=== PATIENT | female | born 1960 | race Caucasian/White ===

== ENCOUNTER → 2018-07-27 | Outpatient (CLI) | payer OTHER ==
--- NOTE | 2018-07-27 08:46 | MR ---
EXAMINATION TYPE: MR knee LT wo con DATE OF EXAM: 07/27/2018 COMPARISON: None HISTORY: Left knee pain / Effusion / Possible Medial meniscus tear TECHNIQUE: Multiplanar, multisequence imaging of the left knee is performed without IV contrast. FINDINGS: MEDIAL MENISCUS: There is a complex tear involving the posterior horn and body of the medial meniscus . LATERAL MENISCUS: Anterior and posterior horns are intact without tear. CRUCIATE LIGAMENTS: The anterior and posterior cruciate ligaments are intact and unremarkable. COLLATERAL LIGAMENTS: The medial collateral ligament and lateral collateral ligament complex are inta ct. Increased fluid surrounding the MCL compatible with grade 1 sprain. EXTENSOR MECHANISM: Visualized quadriceps and patellar tendons are intact. EFFUSION: There is a small amount of fluid in the suprapatellar bursa. POPLITEAL CYST: There is a large 7.5 x 4 x 3 cm popliteal fossa cyst with adjacent fluid compatible with a leaking popliteal fossa cyst. TRICOMPARTMENT SPACES: There is narrowing the medial compartment and patellofemoral compartment joint space with marked thinning of the cartilage compatible with chondromalacia. Correlate for osteoarthr itis. No erosive changes. BONE MARROW SIGNAL: There is abnormal signal involving the posterior medial femoral condyle which is heterogeneous compatible with an area of bone infarction. Marrow edema involving the medial femur and tibia likely reactive. Tiny simple appearing benign cyst involving the tibial plateau near the inter condylar notch IMPRESSION: 1. Complex tear posterior horn and body medial meniscus. 2. Grade 1 MCL sprain. 3. Large 7.5 cm leaking popliteal fossa cyst. 4. Bone infarct medial femoral posterior condyle. 5. Reactive marrow edema involving the medial tibia and femur. 6. Osteoarthritis with diffuse chondromalacia but no evidence of erosive changes.
== END | disposition home or self-care (01) ==
LOC: RADMRIMAIN 07:12
PROVIDERS: ATTEND Orthopaedic Surgery Sports Medicine
DX: S83.242A Other tear of medial meniscus, current injury, left knee, initial encounter (principal); S83.412A Sprain of medial collateral ligament of left knee, initial encounter; M71.22 Synovial cyst of popliteal space [Baker], left knee; M17.12 Unilateral primary osteoarthritis, left knee; M94.262 Chondromalacia, left knee

== ENCOUNTER 2023-12-10 23:11 | Emergency (ER) | payer MEDICARE, OTHER ==
[2023-12-10] MEDS: ACETAMINOPHEN TAB 325 MG TAB PO STA (23:32)
[2023-12-10] MEDS: SODIUM CHLORIDE 0.9% 1,000 ML IV ONE (23:33)
[2023-12-11 00:05] LABS: Basophils # (A) 0.1 k/uL (0-0.2); Basophils % (A) 1 %; Eosinophils # (A) 0.1 k/uL (0-0.7); Eosinophils % (A) 1 %; HCT 40.3 % (34.0-46.0); HGB 13.4 gm/dL (11.4-16.0); Lymphocytes # (A) 2.9 k/uL (1.0-4.8); Lymphocytes % (A) 36 %; MCH 29.9 pg (25.0-35.0); MCHC 33.2 g/dL (31.0-37.0); MCV 90.2 fL (80.0-100.0); Mean Platelet Volume 8.4; Monocytes # (A) 0.5 k/uL (0-1.0); Monocytes % (A) 7 %; Neutrophils # (A) 4.1 k/uL (1.3-7.7); Neutrophils % (A) 52 %; Platelet Count 255 k/uL (150-450); RBC 4.46 m/uL (3.80-5.40); RDW 13.7 % (11.5-15.5); WBC 7.8 k/uL (3.8-10.6)
[2023-12-11 00:15] LABS: INR 0.9 (<1.2); Partial Thromboplastin Time 23.9 sec (22.0-30.0); Prothrombin Time 10.2 sec (10.0-12.5)
--- NOTE | 2023-12-11 00:22 | ED ---
General Adult HPI - General Chief complaint: Fall Stated complaint: Fall Time Seen by Provider: 12/10/23 23:18 Source: patient, EMS, RN notes reviewed, old records reviewed Mode of arrival: EMS Limitations: no limitations - History of Present Illness Initial comments: Patient is a 63-year-old female who presents to the ED emergency department for unwitnessed fall downstairs prior to arrival. Patient was drinking alcohol this evening. Patient's heard the patient slip and fall. There are 2 sets of stairs, and patient did not fall for long and likely fell down at most 2-3 steps. She was unconscious when family found her. She is not on blood thinners. Woke up and while intoxicated, had no acute complaints other than left collarbone pain. Presents for further evaluation at this time. Is still continuing complaining of left collarbone pain with bruising at the site. Suspected fracture there. Otherwise denies any pain in her extremities, abdominal pain, chest pain, back pain. No difficulty breathing. No headaches. No blurry vision. No facial pain. Is in a cervical collar. Presents for further evaluation. - Related Data Previous Rx's Medication Instructions Recorded Cyclobenzaprine [Flexeril] 5 mg PO TID PRN 7 Days #21 tablet 12/11/23 Lidocaine 5% Patch [Lidoderm] 1 patch TOPICAL DAILY PRN 14 Days 12/11/23 #14 patch Allergies Allergy/AdvReac Type Severity Reaction Status Date / Time soap AdvReac Rash/Hives Verified 12/10/23 23:18 Review of Systems ROS Statement: Those systems with pertinent positive or pertinent negative responses have been documented in the HPI. Review of Systems: CONST: Denies fever EYES: Denies blurry vision ENT: Denies nasal congestion C/V: Denies Chest pain RESP: Denies shortness of breath GI: Denies abdominal pain : Denies dysuria SKIN: Denies rash. MSK: Endorses left collarbone pain NEURO: Denies headache ROS Other: All systems not noted in ROS Statement are negative. Past Medical History Past Medical History: Thyroid Disorder Past Surgical History: Unable to Obtain Past Psychological History: No Psychological Hx Reported Smoking Status: Former smoker Past Alcohol Use History: Occasional Past Drug Use History: Marijuana General Exam - General Exam Comments Initial Comments: General: Appears mildly distressed secondary to left collarbone pain. HEAD: Normal with no signs of head trauma. Negative Cueva sign. Negative raccoon eyes. No tenderness palpation of the scalp or face. EYES: PERRLA, EOMI, conjunctiva normal, no discharge. Pulls 3 mm and equal bilaterally. ENT: Hearing grossly intact, normal oropharynx. RESPIRATORY: Clear breath sounds bilaterally. No wheezes, rales, or rhonchi.No evidence of flail chest. No rib tenderness palpation of the posterior or anterior ribs. C/V: Regular rate and rhythm. S1 and S2 auscultated, no edema, peripheral pulses 2+ and intact throughout ABD: Abd is soft, nontender, nondistended EXT: Normal range of motion, no obvious deformity. Pelvis is stable. No tenderness palpation of the chest wall. No tenderness to palpation of the cervical, thoracic, lumbar spine. No step-offs or deformities of the spine. Moving all 4 extremities without issue. Patient does have point tenderness of the midshaft of the left clavicle. Bruising at the site as well. Suspect fracture. SKIN: No rashes or lesions observed on exposed skin. NEURO: Alert and oriented x 4. Cranial nerves II-XII intact. No focal sensory or strength deficits. GCS of 15. Limitations: no limitations Course Vital Signs 12/10/23 12/11/23 12/11/23 23:12 00:17 01:37 Temperature 97.2 F L Pulse Rate 99 89 96 Respiratory 18 20 20 Rate Blood Pressure 149/94 156/99 157/92 O2 Sat by Pulse 95 96 96 Oximetry 12/11/23 03:00 Temperature Pulse Rate 79 Respiratory 18 Rate Blood Pressure 149/89 O2 Sat by Pulse 96 Oximetry Medical Decision Making - Medical Decision Making Was pt. sent in by a medical professional or institution (, PA, SECURITY SOLUTIONS ENGINEER, urgent care, hospital, or [facility]...) When possible be specific @ -No Did you speak to anyone other than the patient for history (EMS, parent, family, police, friend...)? What history was obtained from this source @ -Patient's presents and gives his side of the fall. It was unwitnessed but he was nearby and heard it happen. Was able to 5 details that patient likely only fell down 2 or 3 steps and she is currently acting her normal baseline. Did you review nursing and triage notes (agree or disagree)? Why? @ -I reviewed and agree with nursing and triage notes Were old charts reviewed (outside hosp., previous admission, EMS record, old EKG, old radiological studies, urgent care reports/EKG's, [facility] records)? Report findings @ -No old charts were reviewed Differential Diagnosis (chest pain, altered mental status, abdominal pain women, abdominal pain men, vaginal bleeding, weakness, fever, dyspnea, syncope, headache, dizziness, GI bleed, back pain, seizure, CVA, palpatations, mental health, musculoskeletal)? @ -Differential Musculoskeletal Muscular strain, contusion, ligament sprain, fracture, arthritis, septic arthritis, bursitis, cellulitis, muscle spasm, nerve compression, DVT, arterial occlusion, herpes zoster, electrolyte abnormality, tumor.... This is not meant to be in all inclusive list EKG interpreted by me (3pts min.). @ -As above X-rays interpreted by me (1pt min.). @ -This x-ray, shoulder x-ray negative for any obvious acute fracture or injury. Clavicle x-ray shows a displaced fracture of the mid clavicle on the left. Chest x-ray shows suspected fractures of the second, third and fourth ribs posteriorly. CT interpreted by me (1pt min.). @ -CT brain and C-spine negative for any obvious acute traumatic injury of the brain or cervical spine. Radiology does see the posterior fractures of ribs 2 through [address] chest[address] CT chest reveals the comminuted fracture of the left mid to distal clavicle as well as fractures of the left posterior second third and fourth ribs. No other obvious complications. U/S interpreted by me (1pt. min.). @ -None done What testing was considered but not performed or refused? (CT, X-rays, U/S, labs)? Why? @ -None What meds were considered but not given or refused? Why? @ -I offered analgesia medications, and patient only excepted Tylenol. Did you discuss the management of the patient with other professionals (professionals i.e. , PA, SECURITY SOLUTIONS ENGINEER, lab, RT, psych nurse, social media campaign manager, tactical intelligence officer, teacher, president and chief executive officer, field nurse case manager)? Give summary @ -No Was smoking cessation discussed for >3mins.? @ -No Was critical care preformed (if so, how long)? @ -No Were there social determinants of health that impacted care today? How? (Homelessness, low income, unemployed, alcoholism, drug addiction, transportation, low edu. Level, literacy, decrease access to med. care, care home, rehab)? @ -No Was there de-escalation of care discussed even if they declined (Discuss DNR or withdrawal of care, Hospice)? DNR status @ -No What co-morbidities impacted this encounter? (DM, HTN, Smoking, COPD, CAD, Cancer, CVA, ARF, Chemo, Hep., AIDS, mental health diagnosis, sleep apnea, morbid obesity)? @ -None Was patient admitted / discharged? Hospital course, mention meds given and route, prescriptions, significant lab abnormalities, going to OR and other pertinent info. @ -Based on the patient's presentation and physical exam, presents in toxic with alcohol following a fall. Has an obvious left clavicle fracture. Patient did lose consciousness but is not on blood thinners. Does not meet trauma activation criteria. Cervical collar is in place. We will obtain CT brain, C- spine as well as plain film x-rays of the chest, pelvis, left shoulder and clavicle. Basic labs will also be obtained. Patient was in agreement this plan. She declines any analgesia medications. Patient does except Tylenol as well as a 1 L fluid bolus. Patient's laboratory studies remarkable for alcohol intoxication with an alcohol level of 250. Slight hyponatremia of 129 which was treated with a 1 L fluid bolus. X-rays reveal a left clavicle fracture as well as rib fractures posteriorly that are nondisplaced of 2, 3, [address] chest obtained which revealed these fractures as well. CT brain and C-spine unremarkable. I updated the patient. Due to the multiple rib fractures as well as clavicle fractures I did offer admission however she declines. Currently has no pain in her back or along the ribs. Only pain is of the left clavicle. I discussed this with the patient as well as her and they would like to be discharged home at this time. She will be discharged home with prescriptions for lidocaine patch, Flexeril and she will also be given a Tylenol 3 starter pack. She will be given an incentive spirometer. Left arm will be placed in a sling for her clavicle fracture. We discussed strict return precautions regarding her clavicle fracture as well as her rib fractures. She was in agreement with this plan. Recommended follow-up with orthopedics in the next week for the displaced clavicle fracture. Likely nonoperative but due to disp lacement recommended follow-up. Patient will be discharged home in the care of her will drive her home. No evidence of flail chest seen on exam.No point tenderness at the site of the rib fractures. I will provide the patient with a prescription for Flexeril, lidocaine patches. I instructed the patient to follow up with their PCP in the next 1-3 days. I provided contact information for follow up with orthopedics. I explained that the patient should return to the emergency department if they experience any worsening symptoms. Strict return precautions were discussed with the patient. The patient expressed understanding of these instructions. I answered all questions that the patient had. The patient was discharged home in fair condition with their prescriptions and follow up information. Undiagnosed new problem with uncertain prognosis? @ -No Drug Therapy requiring intensive monitoring for toxicity (Heparin, Nitro, Insulin, Cardizem)? @ -No Were any procedures done? @ -No Diagnosis/symptom? @ -Fall, alcohol intoxication, multiple rib fractures, clavicle fracture Acute, or Chronic, or Acute on Chronic? @ -Acute Uncomplicated (without systemic symptoms) or Complicated (systemic symptoms)? @ -Complicated Side effects of treatment? @ -No Exacerbation, Progression, or Severe Exacerbation? @ -No Poses a threat to life or bodily function? How? (Chest pain, [place], [place], pneumonia, PE, COPD, DKA, ARF, appy, cholecystitis, CVA, Diverticulitis, Homicidal, Suicidal, threat to staff... and all critical care pts) @ -Unlikely - Lab Data Result diagrams: 12/10/23 23:30 12/10/23 23:30 Lab Results 12/10/23 12/10/23 12/10/23 Range/Units 23:30 23:30 23:30 WBC 7.8 (3.8-10.6) k/uL RBC 4.46 (3.80-5.40) m/uL Hgb 13.4 (11.4-16.0) gm/dL Hct 40.3 (34.0-46.0) % MCV 90.2 (80.0-100.0) fL MCH 29.9 (25.0-35.0) pg MCHC 33.2 (31.0-37.0) g/dL RDW 13.7 (11.5-15.5) % Plt Count 255 (150-450) k/uL MPV 8.4 Neutrophils % 52 % Lymphocytes % 36 % Monocytes % 7 % Eosinophils % 1 % Basophils % 1 % Neutrophils # 4.1 (1.3-7.7) k/uL Lymphocytes # 2.9 (1.0-4.8) k/uL Monocytes # 0.5 (0-1.0) k/uL Eosinophils # 0.1 (0-0.7) k/uL Basophils # 0.1 (0-0.2) k/uL PT 10.2 (10.0-12.5) sec INR 0.9 (<1.2) APTT 23.9 (22.0-30.0) sec Sodium 129 L (137-145) mmol/L Potassium 3.6 (3.5-5.1) mmol/L Chloride 96 L (98-107) mmol/L Carbon Dioxide 18 L (22-30) mmol/L Anion Gap 15 mmol/L BUN 9 (7-17) mg/dL Creatinine 0.60 (0.52-1.04) mg/dL Est GFR (CKD-EPI)AfAm >90 (>60 ml/min/1.73 sqM) Est GFR (CKD-EPI)NonAf >90 (>60 ml/min/1.73 sqM) Glucose 141 H (74-99) mg/dL Calcium 9.0 (8.4-10.2) mg/dL Total Bilirubin 0.4 (0.2-1.3) mg/dL AST 30 (14-36) U/L ALT 19 (4-34) U/L Alkaline Phosphatase 60 (38-126) U/L Total Protein 7.4 (6.3-8.2) g/dL Albumin 4.6 (3.5-5.0) g/dL Urine Color Urine Appearance (Clear) Urine pH (5.0-8.0) Ur Specific [place] (1.001-1.035) Urine Protein (Negative) Urine Glucose (UA) (Negative) Urine Ketones (Negative) Urine Blood (Negative) Urine Nitrite (Negative) Urine Bilirubin (Negative) Urine Urobilinogen (<2.0) mg/dL Ur Leukocyte Esterase (Negative) Serum Alcohol 250 H* mg/dL 04/21/24 Range/Units 00:32 WBC (3.8-10.6) k/uL RBC (3.80-5.40) m/uL Hgb (11.4-16.0) gm/dL Hct (34.0-46.0) % MCV (80.0-100.0) fL MCH (25.0-35.0) pg MCHC (31.0-37.0) g/dL RDW (11.5-15.5) % Plt Count (150-450) k/uL MPV Neutrophils % % Lymphocytes % % Monocytes % % Eosinophils % % Basophils % % Neutrophils # (1.3-7.7) k/uL Lymphocytes # (1.0-4.8) k/uL Monocytes # (0-1.0) k/uL Eosinophils # (0-0.7) k/uL Basophils # (0-0.2) k/uL PT (10.0-12.5) sec INR (<1.2) APTT (22.0-30.0) sec Sodium (137-145) mmol/L Potassium (3.5-5.1) mmol/L Chloride (98-107) mmol/L Carbon Dioxide (22-30) mmol/L Anion Gap mmol/L BUN (7-17) mg/dL Creatinine (0.52-1.04) mg/dL Est GFR (CKD-EPI)AfAm (>60 ml/min/1.73 sqM) Est GFR (CKD-EPI)NonAf (>60 ml/min/1.73 sqM) Glucose (74-99) mg/dL Calcium (8.4-10.2) mg/dL Total Bilirubin (0.2-1.3) mg/dL AST (14-36) U/L ALT (4-34) U/L Alkaline Phosphatase (38-126) U/L Total Protein (6.3-8.2) g/dL Albumin (3.5-5.0) g/dL Urine Color Colorless Urine Appearance Clear (Clear) Urine pH 5.0 (5.0-8.0) Ur Specific [place] 1.004 (1.001-1.035) Urine Protein Negative (Negative) Urine Glucose (UA) Negative (Negative) Urine Ketones Negative (Negative) Urine Blood Negative (Negative) Urine Nitrite Negative (Negative) Urine Bilirubin Negative (Negative) Urine Urobilinogen <2.0 (<2.0) mg/dL Ur Leukocyte Esterase Negative (Negative) Serum Alcohol mg/dL - EKG Data -: EKG Interpreted by Me EKG Comments: 12-lead Electrocardiogram Interpretation Note EKG was reviewed and interpreted by myself. 12-lead ECG performed at 2352 is interpreted by me as revealing normal sinus rhythm with isolated PVC at a rate of 93 beats per minute. [place] is normal. DC interval is 204 ms, QRS duration is 94 ms, QTc is 419 ms.. There were no ST or T wave abnormalities to suggest myocardial ischemia or injury. R wave progression across the precordium was satisfactory. By my interpretation this EKG is non-diagnostic for acute ischemia. Disposition Clinical Impression: Fall, Multiple rib fractures, Clavicle fracture, Alcohol intoxication Disposition: HOME SELF-CARE Condition: Fair Instructions (If sedation given, give patient instructions): How to Use an Incentive Spirometer (ED), Clavicle Fracture (ED), Rib Fracture (ED), Fall Prevention for Older Adults (ED) Prescriptions: Cyclobenzaprine [Flexeril] 5 mg PO TID PRN 7 Days #21 tablet PRN Reason: Pain Lidocaine 5% Patch [Lidoderm] 1 patch TOPICAL DAILY PRN 14 Days #14 patch PRN Reason: Pain Is patient prescribed a controlled substance at d/c from ED?: No Referrals: Lynn Olson MD [Primary Care Provider] - 1-2 days Maria T Moore DO [Doctor of Osteopathic Medicine] - 1-2 days Time of Disposition: 02:19
[2023-12-11 00:33] VITALS: TEMP 97.2
[2023-12-11 00:34] LABS: ALT 19 U/L (4-34); African American GFR (CKD) >90 (>60 ml/min/1.73 sqM); Albumin 4.6 g/dL (3.5-5.0); Anion Gap 15 mmol/L; Blood Urea Nitrogen 9 mg/dL (7-17); Carbon Dioxide 18 mmol/L (22-30); Chloride 96 mmol/L (98-107); Glucose 141 mg/dL (74-99); Non-African American GFR(CKD) >90 (>60 ml/min/1.73 sqM); Sodium 129 mmol/L (137-145); Total Bilirubin 0.4 mg/dL (0.2-1.3); Total Protein 7.4 g/dL (6.3-8.2)
--- NOTE | 2023-12-11 00:38 | CT ---
EXAM: CT Head Without Intravenous Contrast CLINICAL HISTORY: ITS.REASON CT Reason: fall TECHNIQUE: Axial computed tomography images of the head/brain without intravenous contrast. CTDI is 45.2 mGy and DLP is 1101.5 mGy-cm. This CT exam was performed using one or more of the following dose reduction techniques: automated exposure control, adjustment of the mA and/or kV according to patient size, and/or use of iterative reconstruction technique. COMPARISON: No relevant prior studies available. FINDINGS: No acute intracranial hemorrhage. No midline shift or mass effect. The territorial poon-white matter differentiation is maintained throughout. Age-related cerebral volume loss. Periventricular and subcortical white matter hypoattenuation, consistent with chronic microangiopathy. The visualized orbits appear grossly unremarkable. The calvarium is intact. The visualized paranasal sinuses and mastoid air cells are grossly clear. IMPRESSION: No acute intracranial hemorrhage, midline shift, or mass effect. EXAM: CT Cervical Spine Without Intravenous Contrast CLINICAL HISTORY: ITS.REASON CT Reason: fall TECHNIQUE: Axial computed tomography images of the cervical spine without intravenous contrast. CTDI is 12.8 mGy and DLP is 395.4 mGy-cm. This CT exam was performed using one or more of the following dose reduction techniques: automated exposure control, adjustment of the mA and/or kV according to patient size, and/or use of iterative reconstruction technique. COMPARISON: No relevant prior studies available. FINDINGS: Vertebrae: Multilevel cervical spondylosis and degenerative disc disease. Straightening of the cervical lordosis. No acute fracture. Discs/spinal canal/neural foramina: See above. Other bones/joints: Fractures of the posterior LEFT second, third, and fourth rib. Displaced, comminuted fracture of the LEFT clavicle. Soft tissues: Unremarkable. IMPRESSION: 1. Fractures of the posterior LEFT second, third, and fourth rib. Chest CT recommended. 2. Displaced, comminuted fracture of the LEFT clavicle.
[2023-12-11 00:40] LABS: AST 30 U/L (14-36); Alcohol 250 mg/dL; Alkaline Phosphatase 60 U/L (38-126); Potassium 3.6 mmol/L (3.5-5.1)
[2023-12-11] MEDS ORDERED: RX INFO: IV CONTRAST WAS GIVEN 1 EACH MISC MISCELLANE PRN (00:41)
--- NOTE | 2023-12-11 00:55 | XR ---
EXAM: XR Left Shoulder Complete, 2 or More Views CLINICAL HISTORY: ITS.REASON XR Reason: fall TECHNIQUE: Two or more views of the left shoulder. COMPARISON: No relevant prior studies available. FINDINGS: Bones/joints: Unremarkable. No fracture or dislocation of the LEFT shoulder. Soft tissues: Unremarkable. IMPRESSION: No fracture or dislocation of the LEFT shoulder. LEFT clavicle and LEFT second, third, and fourth rib fractures. Chest CT recommended.
--- NOTE | 2023-12-11 00:55 | XR ---
EXAM: XR Left Clavicle Complete, 2 or More Views CLINICAL HISTORY: ITS.REASON XR Reason: fall TECHNIQUE: Frontal and lordotic views of the left clavicle. COMPARISON: No relevant prior studies available. FINDINGS: Bones/joints: Displaced fracture of the LEFT mid clavicle diaphysis. Fractures of the LEFT posterior second, third, and fourth ribs. No dislocation. Soft tissues: Unremarkable. IMPRESSION: 1. Displaced fracture of the LEFT mid clavicle diaphysis. 2. Fractures of the LEFT posterior second, third, and fourth ribs. Chest CT recommended.
[2023-12-11 01:08] LABS: Appearance,Urine Clear (Clear); Bilirubin,Urine Negative (Negative); Blood,Urine Negative (Negative); Color,Urine Colorless; Glucose,Urine (UA) Negative (Negative); Ketones,Urine Negative (Negative); Leukocyte Esterase,Urine Negative (Negative); Nitrite,Urine Negative (Negative); Protein,Urine Negative (Negative); Specific Gravity,Urine 1.004 (1.001-1.035); Urobilinogen,Urine <2.0 mg/dL (<2.0)
--- NOTE | 2023-12-11 01:08 | XR ---
EXAM: XR Chest, 1 View CLINICAL HISTORY: ITS.REASON XR Reason: fall TECHNIQUE: Frontal view of the chest. COMPARISON: No relevant prior studies available. FINDINGS: Lungs: Unremarkable. No consolidation. Pleural space: Unremarkable. No pneumothorax. Heart: Unremarkable. No cardiomegaly. Mediastinum: Unremarkable. Normal mediastinal contour. Bones/joints: Unremarkable. No acute fracture. IMPRESSION: Normal chest x-ray.
--- NOTE | 2023-12-11 01:09 | XR ---
EXAM: XR Pelvis, 1 or 2 Views CLINICAL HISTORY: [email or web address].REASON XR Reason: fall' TECHNIQUE: Frontal view of the pelvis. COMPARISON: No relevant prior studies available. FINDINGS: Bones/joints: Unremarkable. No acute fracture. No dislocation. Soft tissues: Unremarkable. IMPRESSION: No acute fracture.
--- NOTE | 2023-12-11 01:47 | CT ---
EXAM: CT Chest Without Intravenous Contrast CLINICAL HISTORY: ITS.REASON CT Reason: rib fractures, fall TECHNIQUE: Axial computed tomography images of the chest without intravenous contrast. CTDI is 7.5 mGy and DLP is 368.6 mGy-cm. This CT exam was performed using one or more of the following dose reduction techniques: automated exposure control, adjustment of the mA and/or kV according to patient size, and/or use of iterative reconstruction technique. COMPARISON: No relevant prior studies available. FINDINGS: Lungs: Unremarkable. No mass. No consolidation. Pleural space: No pneumothorax. Impression per. No significant effusion. Heart: Unremarkable. No cardiomegaly. No significant pericardial effusion. No significant coronary artery calcifications. Bones/joints: Comminuted fracture of the LEFT distal clavicle. Fractures of the LEFT posterior second, third, and fourth ribs. No dislocation. No separation of the AC joint. Soft tissues: Unremarkable. Vasculature: Unremarkable. No thoracic aortic aneurysm. Lymph nodes: Unremarkable. No enlarged lymph nodes. IMPRESSION: 1. Comminuted fracture of the LEFT distal clavicle. 2. Fractures of the LEFT posterior second, third, and fourth ribs.
[2023-12-11] MEDS: LIDOCAINE 4% PATCH TOPICAL STA (02:54)
[2023-12-11] MEDS: ACET/COD 300 MG/30 MG STARTER PACK 6 TAB BTL PO STA (02:54)
[2023-12-11 03:35] VITALS: BP 149/89; PULSE 79; RESP 18
== END 2023-12-11 03:05 | disposition home or self-care (01) ==
LOC: EC 23:11
DX: S22.42XA Multiple fractures of ribs, left side, initial encounter for closed fracture (principal); S42.022A Displaced fracture of shaft of left clavicle, initial encounter for closed fracture; F10.129 Alcohol abuse with intoxication, unspecified; Z87.891 Personal history of nicotine dependence; Y90.8 Blood alcohol level of 240 mg/100 ml or more; F12.90 Cannabis use, unspecified, uncomplicated; Z88.8 Allergy status to other drugs, medicaments and biological substances; W10.9XXA Fall (on) (from) unspecified stairs and steps, initial encounter
CPT/HCPCS: 36415; 80053; 85025; 85610; 85730; 81003; 72170; 73000; 73020; 71045; 72125; 70450; 71250; 99284; 96360; 96361 ×2; G0480; 80320